=== PATIENT | male | born 1950 | race Caucasian/White ===

== ENCOUNTER 2016-09-22 06:17 | Inpatient (IN) | payer OTHER ==
[~2016-09-22] VITALS: Ht 170.2 cm; Wt 67.7 kg
[~2016-09-22 06:17] MED LIST: ALEVE220 MG PO; DILAUDID2 MG PO; HYZAAR 100-21 TABLET PO; LYRICA75 MG PO; NORVASC5 MG PO; ZYLOPRIM100 MG PO; [UNRECOGNIZED DRUG - OTHER] TP
[2016-09-22 06:49] VITALS: BP 136/68
[2016-09-22 06:51] VITALS: BP 136/68
[2016-09-22 07:02] LABS: ANION GAP 11 MEQ/L (2-14); CHLORIDE 92 MEQ/L (99-109); POTASSIUM 3.2 MEQ/L (3.7-5.4); SAMPLE HEMOLYSIS CHECK 0; SAMPLE ICTERIC CHECK 0; SAMPLE LIPEMIA CHECK 0; SODIUM 129 MEQ/L (136-147)
[2016-09-22 07:08] LABS: GFR ESTIMATE (CALCULATED) 50 mL/min/; GLUCOSE 102 mg/dL (70-99); UREA NITROGEN (BUN) 18 mg/dL (9-23)
[2016-09-22 11:12] LABS: ANION GAP 6 MEQ/L (2-14); CHLORIDE 97 MEQ/L (99-109); GFR ESTIMATE (CALCULATED) 59 mL/min/; GLUCOSE 96 mg/dL (70-99); SAMPLE HEMOLYSIS CHECK 0; SAMPLE ICTERIC CHECK 0; SAMPLE LIPEMIA CHECK 0; SODIUM 130 MEQ/L (136-147); UREA NITROGEN (BUN) 15 mg/dL (9-23)
[2016-09-22 11:13] LABS: POTASSIUM 4.8 MEQ/L (3.7-5.4)
[2016-09-22 18:05] VITALS: BP 124/77
[2016-09-22 19:46] VITALS: BP 140/84
[2016-09-23 00:21] VITALS: BP 130/68
[2016-09-23 04:26] VITALS: BP 115/72
[2016-09-23 08:00] VITALS: BP 107/61
[2016-09-23] MEDS ORDERED: CYCLOBENZAPRINE10 MG PO (08:33)
[2016-09-23 11:34] VITALS: BP 139/76
== END 2016-09-23 13:45 | disposition home or self-care (01) | DRG 460 ==
LOC: 3EAST 06:17 → 2SOUTH 06:17 → 3EAST 17:27
PROVIDERS: Anesthesiology; Neurological Surgery
DX: M43.16 Spondylolisthesis, lumbar region (principal); M48.06 Spinal stenosis, lumbar region; M54.89 Other dorsalgia; G54.4 Lumbosacral root disorders, not elsewhere classified
CPT/HCPCS: 72100; 76000; 80048; 80048 91; 86900; 86901; 94799; J0131; J0330; J0690; J1100; J1170; J1580; J1885; J2250; J2405; J3010; J3370; J3480